=== PATIENT | female | born 1965 | race Caucasian/White ===

== ENCOUNTER → 2022-07-05 | Outpatient (CLI) | payer OTHER | LOC: RAD 16:01 | DX: R10.9 Unspecified abdominal pain (principal); R14.3 Flatulence | CPT/HCPCS: 74018 ==

== ENCOUNTER → 2022-07-09 | Outpatient (CLI) | payer OTHER | LOC: KOH-I 10:06 | DX: R10.811 Right upper quadrant abdominal tenderness (principal); K76.0 Fatty (change of) liver, not elsewhere classified; N13.30 Unspecified hydronephrosis | CPT/HCPCS: 76705 ==

== ENCOUNTER → 2022-07-15 | Outpatient (CLI) | payer OTHER | LOC: HEART 5 15:07 | DX: I20.9 Angina pectoris, unspecified (principal) | CPT/HCPCS: 93306 ==